=== PATIENT | female | born 1985 | race Caucasian/White ===

== ENCOUNTER 2016-06-06 07:17 | Day surgery (SDC) | payer BC ==
[2016-06-05 12:23] VITALS: BMI 44.0
[~2016-06-06 07:17] MED LIST: LACTATED RINGERS 1,000 ML IV SCH; LIDOCAINE 1% 20 ML VIAL (10MG/ML) FOR IV START INTRADERMA PRN
[2016-06-06] MEDS ORDERED: LACTATED RINGERS 1,000 ML IV ONE (07:49)
[2016-06-06 07:54] VITALS: RESP 16; TEMP 97.2
[2016-06-06] MEDS ORDERED: PROPOFOL 10 MG/ML 20 ML VIAL IV ONE (07:56)
--- NOTE | 2016-06-06 07:59 | P.GSHP ---
History of Present Illness H&P Date: 06/06/16 Chief Complaint: Rectal bleeding Patient or today for colonoscopy. She's never had one before. She has complaints of constipation and diarrhea. Frequent rectal bleeding. No family history. 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 , HAS A "FLOATING R KIDNEY", blood in stool & w/wiping, constipation History of Any Multi-Drug Resistant Organisms: None Reported Past Surgical History: Adenoidectomy, Hysterectomy, Tonsillectomy Additional Past Surgical History / Comment(s): sinus surg., LAPAROSCOPIC REMOVAL OF ENDOMETRIOSIS Past Anesthesia/Blood Transfusion Reactions: Previous Problems w/ Anesthesia, Motion Sickness, Postoperative Nausea & Vomiting (PONV) Additional Past Anesthesia/Blood Transfusion Reaction / Comment(s): PT STATES DIFFICULTY WAKING UP Past Psychological History: Depression Additional Psychological History / Comment(s): HX OF DEPRESSION. Pt resides with significant other and 5 yr old son. She is normally independent. She uses no assistive device. She drives a car. Smoking Status: Former smoker Past Alcohol Use History: None Reported Additional Past Alcohol Use History / Comment(s): STARTED SMOKING AT AGE 13, SMOKE 1 PACK PER DAY-quit 2014 Past Drug Use History: Marijuana Additional Drug Use History / Comment(s): SMOKES MARIJUANA DAILY - Past Family History Father Family Medical History: COPD, Coronary Artery Disease (CAD), Musculoskeletal Disorder, Neurologic Disorder Additional Family Medical History / Comment(s): Father had parkinson's. He at age 43 yrs. Mother Family Medical History: Osteoarthritis (OA) Medications and Allergies Home Medications Medication Instructions Recorded Confirmed Type Albuterol Inhaler [Ventolin Hfa 1 - 2 puff INHALATION Q6HR PRN 06/05/16 History Inhaler] Cholecalciferol [Vitamin D3] 1,000 unit PO DAILY 06/05/16 06/06/16 History Cyanocobalamin [Vitamin B-12] 1,000 mcg PO DAILY 06/05/16 06/06/16 History Esomeprazole Magnesium [NexIUM] 20 mg PO DAILY PRN 06/05/16 06/06/16 History Ibuprofen [Motrin] 800 mg PO Q8HR PRN 06/05/16 06/06/16 History Allergies Allergy/AdvReac Type Severity Reaction Status Date / Time No Known Allergies Allergy Verified 06/06/16 07:52 Surgical - Exam Vital Signs Temp Resp BP Pulse Ox 97.2 F L 16 133/88 96 06/06/16 07:52 06/06/16 07:52 06/06/16 07:52 06/06/16 07:52 Physical exam: General: Well-developed, well-nourished HEENT: Normocephalic, sclerae nonicteric Abdomen: Nontender, nondistended Extremities: No edema Neuro: Alert and oriented Assessment and Plan (1) Rectal bleeding Status: Acute
--- NOTE | 2016-06-06 08:13 | P.PCN ---
Date of Procedure: 06/06/16 Procedure(s) Performed: PREOPERATIVE DIAGNOSIS: Rectal bleeding, change in bowel habits POSTOPERATIVE DIAGNOSIS: Normal appearing colon PROCEDURE: Colonoscopy with biopsy ANESTHESIA: MAC SURGEON: Clive Mullen M.D. SPECIMENS: Ileum, colon ENDOSCOPIC PROCEDURE: The patient was placed on the endoscopy table in the left decubitus position. The Olympus colonoscope was inserted into the anus and passed under direct visualization to the base of the cecum. The appendiceal orifice was visualized. The ileum was inspected. No definite inflammatory changes were present. Biopsies took place empirically. From that point the scope was slowly withdrawn inspecting all surfaces carefully. There were no neoplastic inflammatory or polypoid lesions throughout the cecum, ascending, transverse, descending, sigmoid and rectum. I did take random biopsies of the colon as well to evaluate for microscopic colitis. There was no diverticulosis noted. Digital rectal examination was normal. No visible hemorrhoids or fissures were seen. The patient was taken to the recovery room in stable condition per anesthesia guidelines. RECOMMENDATIONS: Await biopsy results. Increase dietary fiber and supplement fiber.
[2016-06-06 09:18] VITALS: BP 119/76; PULSE 88
== END 2016-06-06 09:12 | disposition home or self-care (01) ==
LOC: ORWHC2ENDO 07:17
PROVIDERS: ATTEND Surgery
DX: Z87.19 Personal history of other diseases of the digestive system (principal); J44.9 Chronic obstructive pulmonary disease, unspecified; K21.9 Gastro-esophageal reflux disease without esophagitis; Z79.1 Long term (current) use of non-steroidal anti-inflammatories (NSAID); Z79.899 Other long term (current) drug therapy; Z87.891 Personal history of nicotine dependence
CPT/HCPCS: 88305; 45380; J2704

== ENCOUNTER → 2017-07-04 | Outpatient (CLI) | payer BC ==
--- NOTE | 2017-07-04 15:26 | US ---
EXAMINATION TYPE: US thyroid st tissue head/neck DATE OF EXAM: 07/04/2017 COMPARISON: NONE CLINICAL HISTORY: E04.9 Enlarged thyroid; fullness across neck GLAND SIZE: Right Lobe: 5.2 x 1.5 x 1.4 cm Overall Parenchyma: homogenous Left Lobe: 4.0 x 1.2 x 1.1 cm Overall Parenchyma: homogeneous Isthmus Thickness: 0.3 cm NODULES RIGHT: # of nodules measured on right: 0 LEFT: # of nodules measured on left: 0 ISTHMUS: # of nodules measured in the isthmus: 0 Bilateral neck scanned: upper right neck lymph node is imaged = 1.1 x 0.6 x 0.5cm. Technologist aguilar benign-appearing right neck lymph node measuring subcentimeter on short axis on mi ddle images. IMPRESSION: Normal-sized fairly homogeneous thyroid gland without discrete nodule.
== END | disposition home or self-care (01) ==
LOC: RADUSWWP 14:51
PROVIDERS: ATTEND Family Medicine
DX: E04.9 Nontoxic goiter, unspecified (principal)
CPT/HCPCS: 76536

== ENCOUNTER → 2017-07-15 | Outpatient (CLI) | payer BC ==
--- NOTE | 2017-07-16 10:46 | XR ---
EXAM TYPE: LUMBAR SPINE X RAY SERIES COMPARISON: 10/06/2015 HISTORY: Pain TECHNIQUE: 4 views are submitted. FINDINGS: Alignment is anatomic. The pedicles are intact. The transverse processes are intact. There is no s pondylolysis or spondylolisthesis. Hypertrophic and degenerative change of the thoracolumbar junctio n. Stable chronic deformity T12 superior endplate. IMPRESSION: 1. Hypertrophic spurring anteriorly at the thoracolumbar junction with chronic superior endplate defo rmity. If symptoms persist consider MRI.
== END | disposition home or self-care (01) ==
LOC: RADXRMAIN 15:34
PROVIDERS: ATTEND Family Medicine
DX: M25.78 Osteophyte, vertebrae (principal); M43.9 Deforming dorsopathy, unspecified
CPT/HCPCS: 72100